=== PATIENT | male | born 1955 | race Caucasian/White ===

== ENCOUNTER 2019-12-21 11:18 | Emergency (ER) | payer OTHER ==
[~2019-12-21] VITALS: Ht 190.5 cm; Wt 99.8 kg
[2019-12-21] MEDS ORDERED: Isosorbide Mono30 MG PO (11:57)
[2019-12-21] MEDS ORDERED: Aspir 8181 MG PO (11:57)
[2019-12-21] MEDS ORDERED: LEVO-T150 MC1 PO (11:58)
[2019-12-21] MEDS ORDERED: ZESTRIL40 M1 PO (11:58)
[2019-12-21] MEDS ORDERED: Toprol Xl200 MG PO (11:59)
[2019-12-21] MEDS ORDERED: GLUCOPHAGE1000 M1 PO (12:00)
[2019-12-21] MEDS ORDERED: ABILIFY MYCITE30 MG PO (12:01)
[2019-12-21] MEDS ORDERED: ALBU90OI6 INH (12:01)
[2019-12-21] MEDS ORDERED: VOLTAREN ARTHRI20 GM TOP (12:02)
[2019-12-21] MEDS ORDERED: Magnesium Oxid420 MG PO (12:02)
[2019-12-21] MEDS ORDERED: BASAGLAR K100 UNIT/1 SC (12:04)
== END 2019-12-21 13:13 | disposition home or self-care (01) ==
LOC: ER 11:18
DX: M79.662 Pain in left lower leg (principal); M79.652 Pain in left thigh; E11.9 Type 2 diabetes mellitus without complications; F17.210 Nicotine dependence, cigarettes, uncomplicated; Z79.82 Long term (current) use of aspirin; Z79.899 Other long term (current) drug therapy; Z79.84 Long term (current) use of oral hypoglycemic drugs
CPT/HCPCS: 93971; 99283-25